=== PATIENT | female | born 1995 | race African-American/Black ===

== ENCOUNTER 2017-03-05 11:09 | Emergency (ER) | payer OTHER ==
[~2017-03-05] VITALS: Ht 157.5 cm; Wt 66.0 kg
[2017-03-05 11:28] VITALS: BP 129/75
== END 2017-03-05 14:30 | disposition home or self-care (01) ==
LOC: ER 12:55
DX: J02.9 Acute pharyngitis, unspecified (principal)
CPT/HCPCS: 99283

== ENCOUNTER 2017-05-15 10:14 | Emergency (ER) | payer OTHER ==
[~2017-05-15] VITALS: Ht 157.5 cm; Wt 67.0 kg
[2017-05-15] MEDS ORDERED: LIDOCAINE HCL 1% 20ML VIAL (Pyxis) INJ MC ONE (11:15)
[2017-05-15] MEDS ORDERED: TETANUS, DIPHTHERIA, PERTUSSIS VAC/PF 0.5ML (>7YR OLD) IM ONE (11:15)
[2017-05-15] MEDS ORDERED: BACITRACIN ZINC OINT UDPKT TOP ONE (11:15)
[2017-05-15 11:51] VITALS: BP 110/65
== END 2017-05-15 14:04 | disposition home or self-care (01) ==
LOC: ER 13:42
DX: S61.210A Laceration without foreign body of right index finger without damage to nail, initial encounter (principal); S61.011A Laceration without foreign body of right thumb without damage to nail, initial encounter; F12.10 Cannabis abuse, uncomplicated; W26.0XXA Contact with knife, initial encounter; Y93.89 Activity, other specified; Y92.89 Other specified places as the place of occurrence of the external cause; Y99.8 Other external cause status
CPT/HCPCS: 12002; 90471; 90715; 99284; J3490; X7700; Z7610

== ENCOUNTER 2018-01-22 15:28 | Emergency (ER) | payer OTHER ==
[~2018-01-22] VITALS: Ht 157.5 cm; Wt 98.0 kg
[~2018-01-22 15:28] MED LIST: ACETAMINOPHEN 325MG TABLET ONE
[2018-01-22 15:40] VITALS: BP 109/53
[2018-01-22] MEDS ORDERED: ACETAMINOPHEN 325MG TABLET PO ONE (15:45)
== END 2018-01-22 16:45 | disposition home or self-care (01) ==
LOC: ER 16:37
DX: M54.5 Low back pain (principal); R51 Headache; V49.9XXA Car occupant (driver) (passenger) injured in unspecified traffic accident, initial encounter; Y93.89 Activity, other specified; Y99.8 Other external cause status; Y92.410 Unspecified street and highway as the place of occurrence of the external cause
CPT/HCPCS: 81025; 99282

== ENCOUNTER 2018-01-25 20:17 | Emergency (ER) | payer OTHER | END 2018-01-25 23:52 | disposition left against medical advice (07) | LOC: ER 20:17 | DX: R51 Headache (principal); M54.9 Dorsalgia, unspecified; Z53.21 Procedure and treatment not carried out due to patient leaving prior to being seen by health care provider ==

== ENCOUNTER 2020-03-31 05:30 | Emergency (ER) | payer OTHER ==
[~2020-03-31] VITALS: Ht 157.5 cm; Wt 81.0 kg
[2020-03-31 08:05] VITALS: BP 123/79
== END 2020-03-31 08:06 | disposition home or self-care (01) ==
LOC: ER 05:30
DX: S80.811A Abrasion, right lower leg, initial encounter (principal); S40.811A Abrasion of right upper arm, initial encounter; Y04.0XXA Assault by unarmed brawl or fight, initial encounter; Y93.89 Activity, other specified; Y92.89 Other specified places as the place of occurrence of the external cause; Y99.8 Other external cause status
CPT/HCPCS: 99281

== ENCOUNTER 2021-05-09 13:17 | Emergency (ER) | payer OTHER | END 2021-05-09 16:38 | disposition left against medical advice (07) | LOC: ER 13:17 | DX: Z53.21 Procedure and treatment not carried out due to patient leaving prior to being seen by health care provider (principal) ==

== ENCOUNTER 2022-01-04 14:16 | Emergency (ER) | payer MEDICAID, OTHER ==
[~2022-01-04] VITALS: Ht 160 cm; Wt 84.0 kg
[2022-01-04 14:18] VITALS: BP 129/93
== END 2022-01-04 18:25 | disposition left against medical advice (07) ==
LOC: ER 15:20
DX: Z53.21 Procedure and treatment not carried out due to patient leaving prior to being seen by health care provider (principal)